=== PATIENT | male | born 1955 | race Caucasian/White ===

== ENCOUNTER 2018-02-19 09:48 | Day surgery (SDC) | payer MEDICARE ==
[~2018-02-19 09:48] MED LIST: RINGER'S SOLUTION,LACTATED 1,000 ML IV PRN; ceFAZolin SODIUM 1 GM VIAL IV PRN
[2018-02-19] MEDS ORDERED: RINGER'S SOLUTION,LACTATED 1,000 ML IV ONE ×3 (10:35→14:15)
--- NOTE | 2018-02-19 16:54 | OR ---
Anesthesia Procedure Note - Anesthesia Procedure Note Date of Service: 02/19/18 Narrative: Vital Signs - Last Taken Temp 36.8 C 02/19/18 10:38 Pulse 75 02/19/18 10:38 Resp 16 02/19/18 10:38 BP 181/91 02/19/18 10:38 Pulse Ox 97 02/19/18 10:38 O2 Oxygen Delivery Method Room Air ANESTHESIA PROCEDURE NOTE Date of Procedure: 02/19/2018 Time of procedure: 1320. Performed by: LEANNA Damico CRNA, MSN Geography Professor: Crystal Euceda RN. Preprocedure diagnosis: Post humeral fracture surgery pain relief. Post procedure diagnosis: Same. Procedure: Right Interscalene nerve block. Indications: Post right humeral surgery pain relief. Findings: See below. Details of the procedure: The patient was brought to OR #4 and placed in semi- Fowlers position. The patient was prepped with chlorhexidine and using ultrasound guidance the right interscalene level of the brachial plexus was identified and lidocaine 1% was infiltrated to the skin of the intended injection site. Under ultrasound guidance the interscalene nerve bundles of the brachial plexus were approached with visualization of a 2 inch stimulator needle visualized unde ultrasound until a shoulder/arm response was identified on nerve stimulator. Once the stimulator response was effective at less than 0.5 mV and greater than 0.3 mV the brachial plexus nerves at this level were surrounded with 30 mL bupivacaine 0.25% with 1-200,000 epinephrine. Please see radiology/ultrasound report for details and retained images of the procedure. EBL: 0 Fluids: N/A. Specimen: N/A. Post procedure condition: The patient tolerated the procedure well. No complications were noted. Thank you for this consultation. Angel Carranza CRNA, LEANNA, MSN 02/19/18 16:50
[2018-02-19] MEDS ORDERED: oxyCODONE HCL/ACETAMINOPHEN 1 TAB TABLET PO PRN (18:00)
[2018-02-19] MEDS ORDERED: HYDROmorphone HCL 1 MG/ML DISP.SYRIN IV PRN (18:00)
[2018-02-19] MEDS ORDERED: oxyCODONE HCL/ACETAMINOPHEN 1 TAB TABLET ONE (18:57)
[2018-02-19] MEDS ORDERED: oxyCODONE HCL/ACETAMINOPHEN 1 TAB TABLET PO ONE (19:00)
[2018-02-19 19:54] VITALS: BP 154/54
== END 2018-02-19 09:49 | disposition home or self-care (01) ==
LOC: SUR 09:48
PROVIDERS: ATTEND Orthopaedic Surgery
PROC: 0PSF04Z Reposition Right Humeral Shaft with Internal Fixation Device, Open Approach (ICD-10-PCS; principal; 2018-02-19)
PROC: 3E0T3BZ Introduction of Anesthetic Agent into Peripheral Nerves and Plexi, Percutaneous Approach (ICD-10-PCS; 2018-02-19)
DX: S42.391A Other fracture of shaft of right humerus, initial encounter for closed fracture (principal); G89.18 Other acute postprocedural pain; I10 Essential (primary) hypertension; E03.9 Hypothyroidism, unspecified; F41.1 Generalized anxiety disorder; Z86.73 Personal history of transient ischemic attack (TIA), and cerebral infarction without residual deficits; Z87.891 Personal history of nicotine dependence; Z68.24 Body mass index [BMI] 24.0-24.9, adult; W19.XXXA Unspecified fall, initial encounter